=== PATIENT | male | born 1945 | race Caucasian/White ===

== ENCOUNTER → 2017-04-28 | Day surgery (SDC) | payer OTHER ==
[~2017-04-28] MED LIST: ACID CONTROLLER20 MG PO; ASPIR-TRIN325 MG PO; CLARITIN10 M3; LIPITOR PO; LOPID600 MG PO; METOPROLOL TAR25 MG PO; MULTI-DAY VITA1 EACH; OMEGA FISH OIL; ZYRTEC10 M5 PO
--- NOTE | ~2017-04-28 | OR ---
Unit #: [id number] #: [id number] Patient: ESTUARDO PLUMMER JR [id number] [address] [place], [place] [address] [id number] O MR#: [id number] NAME: ESTUARDO PLUMMER JR ROOM: Date of Procedure: 04/28/2017 Admission Date: 04/28/2017 Surgeon: Fermin Velasquez M.D. : 1945 Attending Physician: Fermin Velasquez M.D. Primary Care Physician: Eneida Cardoso M.D. OPERATIVE REPORT PREOPERATIVE DIAGNOSES The patient has presented for colorectal cancer surveillance. He has personal history of colon polyps. PROCEDURE PERFORMED Colonoscopy up to cecum with good prep and visualization. POSTOPERATIVE DIAGNOSES Completely, the patient had [id number] sigmoid and descending colon diverticulosis. Otherwise, examination was normal up to cecum. The quality of the prep was excellent. No polyps were seen. RECOMMENDATIONS Repeat colonoscopy in 5 years. SEDATION USED MAC. DESCRIPTION OF PROCEDURE Following detailed explanation of the potential risks and complications of a colonoscopy, namely perforation, bleeding, and complications related to sedation, the patient was brought to GI lab and laid in the left lateral decubitus position. A digital rectal examination was performed, which was normal. Lubricated tip of the Olympus video colonoscope was inserted through the anus and advanced under direct vision. The scope was advanced and passed up to sigmoid into descending colon. Scant small diverticula were seen in this area. The scope tip was then navigated all the way up to cecum with visualization of the ileocecal valve and the appendiceal orifice. Preparation was excellent with good visualization and photodocumentation was obtained. Last few inches of the terminal ileum also visualized after intubation of the ileocecal valve and appeared normal. Successive segments of the colonic mucosa were examined upon withdrawal and appeared unremarkable. There being no polyps, mass lesions, or AVMs. Other than the left-sided diverticula, no other abnormalities were found. The patient did not have any hemorrhoids at anal verge. The scope was then withdrawn. The patient returned to the recovery area. He tolerated the procedure without any postprocedure complications. Dictated by... Fermin Velasquez M.D. Unit #: [id number] #: [id number] Patient: ESTUARDO PLUMMER JR/andrews TD: 04/28/2017 18:05 JOB #: [id number] OPERATIVE REPORT Page 1 of 1 X Fermin Velasquez MD PROCEDURE OPERATIVE NOTE
== END | disposition home or self-care (01) ==
LOC: COPS 06:29
DX: Z12.11 Encounter for screening for malignant neoplasm of colon (principal); K57.30 Diverticulosis of large intestine without perforation or abscess without bleeding; I25.10 Atherosclerotic heart disease of native coronary artery without angina pectoris; I25.2 Old myocardial infarction; K21.9 Gastro-esophageal reflux disease without esophagitis; Z86.010 Personal history of colon polyps; Z88.8 Allergy status to other drugs, medicaments and biological substances; Z79.82 Long term (current) use of aspirin; Z79.899 Other long term (current) drug therapy; Z98.61 Coronary angioplasty status; Z98.890 Other specified postprocedural states
CPT/HCPCS: J1100; J2250; J2405

== ENCOUNTER → 2017-05-23 | Outpatient (CLI) | payer OTHER ==
--- NOTE | ~2017-05-23 | CR243 ---
[facility] A Service of [facility] & [facility] RADIOLOGY TEXT RESULTS PATIENT: ESTUARDO PLMUMER JR CHINCHILLA LOCATION: [facility] : [birth year] UNIT #: [id number] AGE: [address]: Eneida Cardoso MD SEX: M ORDER DR: [id number] [facility] [address] [place], [place] [address] [id number] O MR#: [id number] Acc #: [id number] NAME: ESTUARDO PLUMMER JR : 1945 SEX: M STUDY DATE/TIME: 05/23/2017 16:25 UNIT: [facility] ROOM: STUDY DESCRIPTION: CR Thoracic Spine 3 Views Attending Physician: Eneida Cardoso M.D. Referring Physician: Eneida Cardoso M.D. Ordering Physician: Eneida Cardoso M.D. Primary Care Physician: Eneida Cardoso M.D. MEDICAL IMAGING REPORT This report is preliminary unless electronic signature is present EXAM Thoracic spine, 3 views. HISTORY Mid-back pain for 3 weeks. No injury. FINDINGS Three views of the thoracic spine demonstrate mild mid-right thoracic curve. Moderate hypertrophic changes mid and lower thoracic spine. No fracture or subluxation. IMPRESSION 1. No acute findings. No fracture. Moderate hypertrophic changes mid and lower thoracic spine. 2. Mild mid-right thoracic curve. Dictated by... Shelton Lutz M.D. THIS IS AN ELECTRONICALLY VERIFIED REPORT Shelton Lutz M.D. at 05/24/2017 12:03 PM DFL/miguel TD: 05/24/2017 09:23 JOB #: [id number] MEDICAL IMAGING REPORT Page 1 of 1 COPY
== END | disposition home or self-care (01) ==
LOC: CRAD 16:02
DX: M54.6 Pain in thoracic spine (principal); M43.9 Deforming dorsopathy, unspecified
CPT/HCPCS: 72072